=== PATIENT | female | born 1975 | race Caucasian/White ===

== ENCOUNTER 2021-05-15 12:32 | Emergency (ER) | payer OTHER, SELFPAY ==
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
[2021-05-15 12:55] VITALS: BP 156/94; PULSE 89; RESP 16; TEMP 36.8; O2SAT 100
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
== END 2021-05-15 16:48 | disposition home or self-care (01) ==
PROVIDERS: Emergency Provider Emergency Medicine; PCP Registered Nurse
DX: S50.12XA Contusion of left forearm, initial encounter (principal); V49.9XXA Car occupant (driver) (passenger) injured in unspecified traffic accident, initial encounter
CPT/HCPCS: 73090; 99283